=== PATIENT | female | born 1945 | race Caucasian/White ===

== ENCOUNTER 2016-03-14 11:08 | Emergency (ER) | payer MEDICARE, BC ==
[~2016-03-14] VITALS: Ht 172.7 cm; Wt 59.1 kg
[~2016-03-14 11:08] MED LIST: AMITRIPTYLINE25 MG PO; ASPIRIN E.C. 8181 MG PO; BENADRYL50 MG PO; CARISOPRODOL350 MG PO; CHEMO; CLONAZEPAM1 MG PO; COMBIRESP IH; COMBIVENT INH14.7 GM IH; CYMBALTA 30MG30 MG PO; DECADRON 4MG TAB4 MG PO; DETROL LA4 PO; DIFLUCAN 100MG100 MG PO; DILAUDID 2MG TAB2 MG PO; DILAUDID 4MG TAB4 MG PO; EFFEXOR 75M75 MG/TAB PO; FLONASE NASAL S16 GM NS; FLUTICAS P0.05 MG/AC NS; FLUTICASONE PR0.005% TP; HYOMAX-FT0.125 MG PO; KLONOPIN 1MG1 MG PO; KLOR-CON 1010 MEQ PO; LASIX; LASIX 20MG TABL20 MG PO; LEVAQUIN 5500 MG/TA1 PO; LEVAQUIN 750MG750 M1 PO; LEXAPRO 10MG10 MG PO; LORTAB 5/500 501 TAB PO; LOTENSIN10 MG PO; LOTENSIN20 MG PO; LYRICA 50MG CAP50 MG PO; MAGIC MOUTH PO; MS CONTIN 115 MG/TAB PO; NIASPAN375 MG PO; NITROSTAT0.4 MG/TAB SL; PERCOCET 325 MG1 TA2 PO; PERCOCET 325 MG1 TAB PO; PROMETHAZINE12.5 M5 PO; ROXICODONE 55 MG/TAB PO; SILVADEN TOP; SLEEP AID25 M1 PO; SOMA; SOMA 350MG350 MG/TAB PO; TOVIAZ4 MG PO; ULTRAM 50MG TAB50 MG PO; ULTRAM50 MG; UNABLE; ZITHROMAX 250M250 MG PO
[2016-03-14 11:54] LABS: BASO % 0.6 % (0.0-2.0); EOS # 0.1 (0.0-0.7); EOS % 2.6 % (0-4.0); GRAN # 3.2 (1.4-6.5); GRAN % 67.9 % (42.2-75.2); HEMATOCRIT 39.8 % (37.0-47.0); HEMOGLOBIN 13.2 g/dl (12.5-16.0); LYMPH # 0.9 (1.2-3.4); LYMPH % 19.2 % (20.0-51.0); MEAN CELL VOLUME 92 fl (80.0-100.0); MEAN CORPUSCULAR HEMOGLOBIN 31 pg (27.0-31.0); MEAN CORPUSCULAR HGB CONC 33 g/dl (33.0-37.0); MEAN PLATELET VOLUME 9.5 fl (7.4-10.4); MONO # 0.4 (0.1-0.6); MONO % 9.5 % (1.7-9.3); PLATELET COUNT 169 K/mm3 (130-400); RED BLOOD COUNT 4.31 M/mm3 (4.10-5.30); REDCELL DISTRIBUTION WIDTH-CV 13.3 % (11.5-14.5); WHITE BLOOD COUNT 4.6 K/mm3 (4.8-10.8)
[2016-03-14 12:09] LABS: ADJUSTED CALCIUM 9.2 mg/dL (8.4-10.2); ALBUMIN 4.1 gm/dL (3.5-5.0); BILIRUBIN,TOTAL 0.5 mg/dL (0.0-1.0); CALCIUM 9.3 mg/dL (8.4-10.2); CREATININE, serum 0.75 mg/dL (0.52-1.25); POTASSIUM 3.9 mmol/L (3.4-5.0); TOTAL PROTEIN 7.2 gm/dL (6.4-8.2)
[2016-03-14] MEDS ORDERED: PERCOCET 325 MG1 TA2 PO (13:28)
[2016-03-14 13:54] VITALS: BP 119/68; PULSE 65; TEMP 98.7
== END 2016-03-14 13:55 | disposition home or self-care (01) ==
LOC: COL.ER 11:08
PROVIDERS: Emergency Medicine
DX: S70.02XA Contusion of left hip, initial encounter (principal); G20 Parkinson's disease; Z99.3 Dependence on wheelchair; Y92.002 Bathroom of unspecified non-institutional (private) residence as the place of occurrence of the external cause; W05.0XXA Fall from non-moving wheelchair, initial encounter

== ENCOUNTER 2016-05-18 12:47 | Day surgery (SDC) | payer MEDICARE, BC ==
[~2016-05-18] VITALS: Ht 160 cm; Wt 59.1 kg
[2016-05-18 14:05] VITALS: BP 119/71; PULSE 63; TEMP 98.8
[2016-05-18] MEDS ORDERED: FLEXERIL 1010 MG/TAB PO (14:18)
[2016-05-18] MEDS ORDERED: LEXAPRO 10MG10 MG PO (14:19)
[2016-05-18] MEDS ORDERED: ZESTRIL 20MG TA20 MG PO (14:20)
[2016-05-18 15:08] VITALS: BP 118/69; PULSE 60; TEMP 98.3
[2016-05-18 15:20] VITALS: BP 116/67; PULSE 58
[2016-05-18 15:30] VITALS: BP 128/79; PULSE 64
[2016-05-18 17:47] VITALS: BP 121/67; PULSE 63
== END 2016-05-18 16:11 | disposition home or self-care (01) ==
LOC: SDCO 12:47
DX: Z12.11 Encounter for screening for malignant neoplasm of colon (principal); K63.5 Polyp of colon; D12.5 Benign neoplasm of sigmoid colon; K57.30 Diverticulosis of large intestine without perforation or abscess without bleeding; C34.90 Malignant neoplasm of unspecified part of unspecified bronchus or lung
CPT/HCPCS: OP; J2250; J3010; J7030

== ENCOUNTER → 2016-06-02 | Outpatient (CLI) | payer MEDICARE, BC ==
[~2016-06-02] MED LIST changes: +CLARITIN 1010 MG/TAB PO; +FLEXERIL 1010 MG/TAB PO; +STOOL SOFTENER100 M2 PO; +XARELTO10 MG PO; +ZESTRIL 20MG TA20 MG PO
== END ==
LOC: MC.RAD 13:40
DX: Z12.31 Encounter for screening mammogram for malignant neoplasm of breast (principal); Z85.3 Personal history of malignant neoplasm of breast; Z80.3 Family history of malignant neoplasm of breast

== ENCOUNTER 2016-07-04 17:52 | Inpatient (IN) | payer MEDICARE, BC ==
[~2016-07-04] VITALS: Ht 167.6 cm; Wt 59.7 kg
[~2016-07-04 17:52] MED LIST changes: -CLARITIN 1010 MG/TAB PO; -STOOL SOFTENER100 M2 PO; -XARELTO10 MG PO
[2016-07-04] MEDS ORDERED: STOOL SOFTENER100 M2 PO (18:00)
[2016-07-04 18:44] LABS: BASO % 0.5 % (0.0-2.0); EOS % 0.1 % (0-4.0); GRAN # 6.5 (1.4-6.5); GRAN % 83.4 % (42.2-75.2); HEMATOCRIT 37.4 % (37.0-47.0); HEMOGLOBIN 12.6 g/dl (12.5-16.0); LYMPH # 0.7 (1.2-3.4); LYMPH % 8.5 % (20.0-51.0); MEAN CELL VOLUME 92 fl (80.0-100.0); MEAN CORPUSCULAR HEMOGLOBIN 31 pg (27.0-31.0); MEAN CORPUSCULAR HGB CONC 34 g/dl (33.0-37.0); MEAN PLATELET VOLUME 9.2 fl (7.4-10.4); MONO # 0.6 (0.1-0.6); MONO % 7.1 % (1.7-9.3); PLATELET COUNT 230 K/mm3 (130-400); RED BLOOD COUNT 4.07 M/mm3 (4.10-5.30); REDCELL DISTRIBUTION WIDTH-CV 13.5 % (11.5-14.5); WHITE BLOOD COUNT 7.8 K/mm3 (4.8-10.8)
[2016-07-04 18:52] LABS: ADJUSTED CALCIUM 9.1 mg/dL (8.4-10.2); ALBUMIN 3.5 gm/dL (3.5-5.0); BILIRUBIN,TOTAL 0.8 mg/dL (0.0-1.0); CALCIUM 8.7 mg/dL (8.4-10.2); CREATININE, serum 0.52 mg/dL (0.52-1.25); POTASSIUM 3.9 mmol/L (3.4-5.0)
[2016-07-04 18:55] LABS: INR 1.3 (0.8-3.0)
[2016-07-04 21:36] VITALS: BP 132/70; PULSE 70; TEMP 97.5
[2016-07-04 23:56] LABS: PH 7 (5-8); SQUAMOUS EPITHELIAL None Seen /hpf; URINE APPEARANCE Clear; URINE BACTERIA None Seen /hpf; URINE BILIRUBIN Negative (NEGATIVE); URINE BLOOD 1+ (NEGATIVE); URINE COLOR Yellow; URINE GLUCOSE Negative (NEGATIVE); URINE KETONE Trace (NEGATIVE); URINE RBC 0-2 /hpf; URINE UROBILINOGEN Negative (NEGATIVE); URINE WBC 0-2 /hpf
[2016-07-05] VITALS (14 sets, daily range): BP systolic 100–142; BP diastolic 51–73; PULSE 59–88; TEMP 97.1–99.5
[2016-07-06 05:34] VITALS: BP 124/58; PULSE 80; TEMP 97.8
[2016-07-06 10:00] VITALS: BP 125/63; PULSE 77; TEMP 97.7
[2016-07-06 14:56] VITALS: BP 96/56; PULSE 81; TEMP 98
[2016-07-06 17:41] VITALS: BP 98/56; PULSE 85; TEMP 98
[2016-07-06 22:00] VITALS: BP 98/52; PULSE 79; TEMP 99.5
[2016-07-07] VITALS (8 sets, daily range): BP systolic 91–138; BP diastolic 51–76; PULSE 70–86; TEMP 97.3–98.7
[2016-07-07] MEDS ORDERED: CLARITIN 1010 MG/TAB PO (08:36)
[2016-07-07] MEDS ORDERED: XARELTO10 MG PO (08:37)
[2016-07-08 01:55] VITALS: BP 96/65; PULSE 90; TEMP 97.7
[2016-07-08 05:57] VITALS: BP 113/61; PULSE 77; TEMP 98.3
[2016-07-08 09:54] VITALS: BP 112/67; PULSE 96; TEMP 98.7
== END 2016-07-08 11:19 | DRG 482 ==
LOC: COL.ER 17:52 → SURG 18:44
PROVIDERS: Emergency Medicine; Internal Medicine
DX: S72.141A Displaced intertrochanteric fracture of right femur, initial encounter for closed fracture (principal); W18.30XA Fall on same level, unspecified, initial encounter; G20 Parkinson's disease; J44.9 Chronic obstructive pulmonary disease, unspecified; I25.10 Atherosclerotic heart disease of native coronary artery without angina pectoris; Z95.5 Presence of coronary angioplasty implant and graft; I10 Essential (primary) hypertension; Z87.891 Personal history of nicotine dependence; D50.0 Iron deficiency anemia secondary to blood loss (chronic); Z85.118 Personal history of other malignant neoplasm of bronchus and lung
CPT/HCPCS: 99223-AI; 99232-AI; 99239; A9284; C1713; J0690; J1100; J2250; J2270; J2405; J2704; J2765; J3010; J7030